=== PATIENT | male | born 1950 | race Caucasian/White ===

== ENCOUNTER 2020-07-11 08:50 | Observation (INO) | payer OTHER ==
[~2020-07-11] VITALS: Ht 185.4 cm; Wt 86.0 kg
[~2020-07-11 08:50] MED LIST: APIX5TAB PO; ATOR20TA37 PO; BACITRACIN 50,000 UNIT ONE; BUPIVACAINE 0.25% ONE; BUPIVACAINE/PF 0.5% ONE; DIGO125T85 PO; EPINEPHRINE 1 MG/ML, 1ML ONE; FLUT9.9S NS; fiber PO
[2020-07-11] MEDS ORDERED: CHLORHEXIDINE 15 ML UDC ONE (09:56)
[2020-07-11] MEDS ORDERED: LACTATED RINGERS 1,000 ML IV SCH (10:00)
[2020-07-11] MEDS ORDERED: CHLORHEXIDINE 15 ML UDC PO ONE (10:00)
[2020-07-11] MEDS ORDERED: MIDAZOLAM 1 MG/ML, 2ML ONE (11:34)
[2020-07-11] MEDS ORDERED: FENTANYL PF 250 MCG/5ML ONE (11:34)
[2020-07-11] MEDS ORDERED: PROPOFOL 100 ML ONE (11:35)
[2020-07-11] MEDS ORDERED: ONDANSETRON 2MG/ML, 2ML IVPush PRN ×2 (12:30→15:00)
[2020-07-11] MEDS ORDERED: ACETAMINOPHEN 325 MG TABLET PO PRN (12:30)
[2020-07-11] MEDS ORDERED: hydrALAzine 20 MG/ML, 1ML IV PRN (12:30)
[2020-07-11] MEDS ORDERED: HYDROmorphone 1 MG/ML, 1ML INJ IVPush PRN ×2 (12:30→15:00)
[2020-07-11] MEDS ORDERED: LABETALOL 5MG/ML, 20ML IV PRN (12:30)
[2020-07-11] MEDS ORDERED: PROMETHAZINE 25 MG/ML, 1ML IVPush PRN (12:30)
[2020-07-11] MEDS ORDERED: FENTANYL PF 100 MCG/2ML IV PRN (12:30)
[2020-07-11] MEDS ORDERED: MEPERIDINE/PF 25MG/0.5ML IVPush PRN (12:30)
[2020-07-11] MEDS ORDERED: METHOCARBAMOL 1,000 MG in DEXTROSE 5% 100 ML IV PRN (12:30)
[2020-07-11] MEDS ORDERED: OXYcodone 5 MG/5 ML ORAL.SOL UDC PO PRN (12:30)
[2020-07-11] MEDS ORDERED: ROCURONIUM 10MG/ML,5ML ONE (12:40)
[2020-07-11] MEDS ORDERED: DEXAMETHASONE 4 MG/ML, 1ML ONE (12:40)
[2020-07-11] MEDS ORDERED: PROPOFOL 10 MG/ML, 20ML ONE ×2 (12:40→14:06)
[2020-07-11] MEDS ORDERED: CEFAZOLIN 1,000 MG ONE (12:49)
[2020-07-11] MEDS ORDERED: BUPIVACAINE/PF-EPI 0.5% 1:200K INFIL ONE (12:56)
[2020-07-11] MEDS ORDERED: BACITRACIN 50,000 UNIT IM ONE (12:57)
[2020-07-11] MEDS ORDERED: FENTANYL PF 100 MCG/2ML ONE (13:39)
[2020-07-11] MEDS ORDERED: BUPIVACAINE LIPOSOME/PF 10ML INFIL ONE (13:41)
[2020-07-11] MEDS ORDERED: BUPIVACAINE/PF 0.25% EPIDPUSH ONE (13:48)
[2020-07-11] MEDS ORDERED: FENTANYL PF 100 MCG/2ML EPIDPUSH ONE (13:49)
[2020-07-11] MEDS ORDERED: ONDANSETRON 2MG/ML, 2ML ONE (14:06)
[2020-07-11] MEDS ORDERED: VANCOMYCIN 1,000 MG ONE (14:12)
[2020-07-11] MEDS ORDERED: VANCOMYCIN 1,000 MG IM ONE (14:15)
[2020-07-11] MEDS ORDERED: DIPHENHYDRAMINE 50 MG CAPSULE PO PRN (15:00)
[2020-07-11] MEDS ORDERED: OXYcodone/APAP 5/325MG TABLET PO PRN (15:00)
[2020-07-11] MEDS ORDERED: DIPHENHYDRAMINE 50 MG/ML, 1ML IM PRN (15:00)
[2020-07-11] MEDS ORDERED: PHARMACY MAY ADJ FOR RENAL FX MC PRN (15:00)
[2020-07-11] MEDS ORDERED: DIPHENHYDRAMINE 50 MG/ML, 1ML IVPush PRN (15:00)
[2020-07-11] MEDS ORDERED: BISACODYL 10 MG SUPP PR PRN (15:00)
[2020-07-11] MEDS ORDERED: MAGNESIUM HYDROXIDE 8%, 30ML UDC PO PRN (15:00)
[2020-07-11] MEDS ORDERED: HYDROcodone/APAP 5/325 TABLET PO PRN (15:00)
[2020-07-11] MEDS ORDERED: ENOXAPARIN 40 MG/0.4 ML SQ SCH (15:00)
[2020-07-11] MEDS ORDERED: SENNA/DOCUSATE TABLET PO PRN (15:00)
[2020-07-11] MEDS ORDERED: METHOCARBAMOL 1,000 MG in DEXTROSE 5% 100 ML IV ONE (15:00)
[2020-07-11] MEDS ORDERED: METHOCARBAMOL 750 MG TABLET PO PRN (15:00)
[2020-07-11] MEDS ORDERED: OXYcodone 5 MG/5 ML ORAL.SOL UDC ONE (16:17)
[2020-07-11] MEDS ORDERED: ACETAMINOPHEN 650 MG/20.3 ML UDC ONE (16:17)
[2020-07-11] MEDS: D5%-0.9% NACL+KCL 20MEQ 1,000 ML IV SCH (17:00)
[2020-07-11] MEDS: CEFAZOLIN PMX 1GM/50ML 50 ML IVPB SCH (17:48)
[2020-07-11] MEDS: SODIUM CHLORIDE FLUSH 10ML SYR IVF SCH (19:51)
[2020-07-11] MEDS ORDERED: CEFAZOLIN PMX 1GM/50ML 50 ML IVPB SCH (20:00)
[2020-07-11 20:52] VITALS: BP 108/73
[2020-07-11] MEDS ORDERED: ATORVASTATIN 20 MG TABLET PO SCH (21:00)
[2020-07-11 21:05] LABS: TROPONIN I < 0.015 ng/mL (0.000-0.045)
[2020-07-11] MEDS ORDERED: ALUMINUM/MAG/SIMETHICONE 30 ML UDC PO PRN (22:00)
[2020-07-11] MEDS: PANTOPRAZOLE 40MG TABLET PO SCH (23:41)
[2020-07-11] MEDS: ACETAMINOPHEN 325 MG TABLET PO PRN (23:41)
[2020-07-12 00:09] VITALS: BP 123/73
[2020-07-12] MEDS: CEFAZOLIN PMX 1GM/50ML 50 ML IVPB SCH (01:38)
[2020-07-12] MEDS: D5%-0.9% NACL+KCL 20MEQ 1,000 ML IV SCH (01:40)
[2020-07-12 02:27] VITALS: BP 104/62
[2020-07-12 04:24] LABS: TROPONIN I 0.019 ng/mL (0.000-0.045)
[2020-07-12 04:25] LABS: CREATININE 0.84 mg/dL (0.7-1.3)
[2020-07-12] MEDS ORDERED: ENOXAPARIN 40 MG/0.4 ML SQ SCH (06:00)
[2020-07-12] MEDS ORDERED: ENOXAPARIN 30 MG/0.3 ML SQ SCH (06:15)
[2020-07-12] MEDS: PANTOPRAZOLE 40MG TABLET PO SCH (06:24)
[2020-07-12] MEDS: ACETAMINOPHEN 325 MG TABLET PO PRN ×2 (06:29→10:52)
[2020-07-12 08:08] VITALS: BP 123/72
[2020-07-12] MEDS ORDERED: CEPH-376 PO (08:18)
[2020-07-12] MEDS ORDERED: METH-640 PO (08:18)
[2020-07-12] MEDS ORDERED: HYDR-2214 PO (08:18)
[2020-07-12] MEDS: SODIUM CHLORIDE FLUSH 10ML SYR IVF SCH (08:31)
[2020-07-12] MEDS ORDERED: FLUTICASONE NASAL SPRAY 16GM NAS SCH (09:00)
[2020-07-12] MEDS ORDERED: DIGOXIN 0.125 MG TABLET PO SCH (09:00)
[2020-07-12 09:45] LABS: TROPONIN I 0.017 ng/mL (0.000-0.045)
[2020-07-12] MEDS ORDERED: CEPHALEXIN 500 MG CAPSULE PO SCH (11:00)
[2020-07-12] MEDS ORDERED: DIPHENHYDRAMINE 25 MG CAPSULE PO PRN (11:00)
== END 2020-07-12 14:32 | disposition home or self-care (01) ==
LOC: INTOOBSV 08:50 → ORIP 08:50 → 4NE 16:48 → 4WST 07-12 02:27
PROVIDERS: ADMIT Neurological Surgery; ATTEND Family Medicine
DX: M48.062 Spinal stenosis, lumbar region with neurogenic claudication (principal); Z20.822 Contact with and (suspected) exposure to COVID-19; M54.16 Radiculopathy, lumbar region; I10 Essential (primary) hypertension; E78.5 Hyperlipidemia, unspecified; I48.91 Unspecified atrial fibrillation; R07.89 Other chest pain; K21.9 Gastro-esophageal reflux disease without esophagitis; Z79.899 Other long term (current) drug therapy; Z87.891 Personal history of nicotine dependence; Z79.01 Long term (current) use of anticoagulants
CPT/HCPCS: 36415; 63056; 63057; 71045; 71046; 72100; 74021; 82565; 84484; 93005; 95938; 95941; 96361; 96365; 96366; 96372; 97161; C1781; G0378; J0171; J0690; J1100; J1650; J2250; J2405; J2704; J2800; J3010; J3370; J3480; J7120; S0020; U0003; U0005